=== PATIENT | female | born 1995 | race Hispanic/Latino ===

== ENCOUNTER 2023-02-10 21:49 | Observation (INO) | payer BC, OTHER ==
[2023-02-10 22:24] VITALS: BMI 41.1
[2023-02-10] MEDS ORDERED: hydrALAZINE 20 MG/ML VIAL SLOW IVP PRN (22:55)
[2023-02-10 23:49] LABS: #Monocytes 0.9 10x3/uL (0.0-1.1); %Basophils 0.3 % (0.0-2.0); %Eosinophils 0.5 % (0.0-6.0); %Lymphocytes 19.8 % (18.0-47.0); %Monocytes 9.9 % (0.0-10.0); %Neutrophils 69.2 % (40.0-75.0); Hematocrit 40.5 % (34.9-44.5); Hemoglobin 14.2 g/dL (12.0-15.5); Mean Corpuscular HGB CONC 35.1 g/dL (32.0-36.0); Mean Corpuscular Hemoglobin 31.3 pg (27.0-33.0); Mean Corpuscular Volume 89.4 fl (81.6-98.3); Mean Platelet Volume 12.1 fl (7.4-10.4); Platelet Count 173 10x3/uL (150-450); RBC Distribution Width 12.8 % (11.5-14.5); Red Blood Cell (RBC) Count 4.53 10x6/uL (3.90-5.03); White Blood Cell (WBC) Count 8.7 10x3/uL (3.5-10.5)
[2023-02-11] MEDS ORDERED: hydrALAZINE 20 MG/ML VIAL SLOW IVP PRN (00:46)
[2023-02-11] MEDS ORDERED: Promethazine HCl 25 MG/ML VIAL IM PRN (00:46)
[2023-02-11] MEDS ORDERED: Ondansetron PF 4 MG/2 ML Vial IVP PRN (00:46)
[2023-02-11] MEDS ORDERED: Acetaminophen 500 MG TAB PO PRN (00:46)
[2023-02-11] MEDS ORDERED: Lactated Ringer's 1,000 ML IV SCH (01:00)
[2023-02-11 02:05] LABS: Hematocrit 40.6 % (34.9-44.5); Hemoglobin 14.3 g/dL (12.0-15.5); Mean Corpuscular HGB CONC 35.2 g/dL (32.0-36.0); Mean Corpuscular Hemoglobin 31.6 pg (27.0-33.0); Mean Corpuscular Volume 89.8 fl (81.6-98.3); Mean Platelet Volume 12.3 fl (7.4-10.4); Platelet Count 171 10x3/uL (150-450); RBC Distribution Width 12.9 % (11.5-14.5); Red Blood Cell (RBC) Count 4.52 10x6/uL (3.90-5.03); White Blood Cell (WBC) Count 8.1 10x3/uL (3.5-10.5)
[2023-02-11 02:17] LABS: INR-International Normal Ratio 0.9; PTT 27.9 sec (22.0-33.0); Prothrombin Time 9.9 sec (9.5-12.1)
[2023-02-11 02:41] LABS: HBSAg Index 0.15 S/CO (0-0.99); Hep B Surf Ag - L&D Non-Reactive S/CO (NonReactive)
[2023-02-11 02:42] LABS: Syphilis Antibody Nonreactive (Nonreactive); Syphilis Antibody Index 0.02 S/CO (<1.00 Non-Reactive)
[2023-02-11 02:43] LABS: HIV (1/2) Antibody/Antigen Non-Reactive (NonReactive)
== END 2023-02-11 11:15 | disposition home or self-care (01) ==
LOC: CSHLD/OP 21:49 → CSHLD 02-11 00:46 → UNDOADMOB 02-11 01:33 → CSHLD 02-11 01:33
PROVIDERS: ADMIT Family Medicine; ATTEND Family Medicine
DX: O46.93 Antepartum hemorrhage, unspecified, third trimester (principal); Z3A.38 38 weeks gestation of pregnancy; Z79.899 Other long term (current) drug therapy
CPT/HCPCS: 36415; 76815; 76819; 85025; 85027; 85610; 85730; 86780; 86900; 86901; 87340; 87389; 99285; G0378

== ENCOUNTER 2023-02-11 16:15 | Inpatient (IN) | payer BC, OTHER ==
[2023-02-11 16:31] VITALS: BMI 41.1
[2023-02-11] MEDS ORDERED: Acetaminophen 500 MG TAB PO PRN (17:34)
[2023-02-11] MEDS ORDERED: Promethazine HCl 25 MG/ML VIAL IM PRN ×2 (17:34→22:38)
[2023-02-11] MEDS ORDERED: hydrALAZINE 20 MG/ML VIAL SLOW IVP PRN ×2 (17:34→22:38)
[2023-02-11] MEDS ORDERED: Lidocaine 1% (PF) 30 ML VIAL SC PRN (17:34)
[2023-02-11] MEDS ORDERED: Ondansetron PF 4 MG/2 ML Vial IVP PRN ×2 (17:34→22:38)
[2023-02-11] MEDS ORDERED: fentaNYL 50 mcg/mL 1 mL Vial SLOW IVP PRN (17:41)
[2023-02-11] MEDS ORDERED: Oxytocin 30 units/NS 500 ML 500 ML IV SCH ×2 (17:45)
[2023-02-11] MEDS ORDERED: Lactated Ringer's 1,000 ML IV SCH (17:45)
[2023-02-11 17:57] LABS: Hematocrit 41.2 % (34.9-44.5); Hemoglobin 14.2 g/dL (12.0-15.5); Mean Corpuscular HGB CONC 34.5 g/dL (32.0-36.0); Mean Corpuscular Hemoglobin 30.6 pg (27.0-33.0); Mean Corpuscular Volume 88.8 fl (81.6-98.3); Mean Platelet Volume 12.2 fl (7.4-10.4); Platelet Count 190 10x3/uL (150-450); RBC Distribution Width 12.9 % (11.5-14.5); Red Blood Cell (RBC) Count 4.64 10x6/uL (3.90-5.03); White Blood Cell (WBC) Count 10.6 10x3/uL (3.5-10.5)
[2023-02-11 18:13] LABS: HBSAg Index 0.14 S/CO (0-0.99); Hep B Surf Ag - L&D Non-Reactive S/CO (NonReactive)
[2023-02-11 18:15] LABS: Syphilis Antibody Nonreactive (Nonreactive); Syphilis Antibody Index 0.02 S/CO (<1.00 Non-Reactive)
[2023-02-11 18:45] LABS: HIV (1/2) Antibody/Antigen Non-Reactive (NonReactive); HIV 1/2 INDEX 0.11 S/CO (<1.00)
[2023-02-11] MEDS ORDERED: Misoprostol 200 MCG TAB ONE (22:25)
[2023-02-11] MEDS ORDERED: Milk Of Magnesia 30 ML UDCUP PO PRN (22:38)
[2023-02-11] MEDS ORDERED: Bisacodyl 10 MG SUPP PR PRN (22:38)
[2023-02-11] MEDS ORDERED: Benzocaine-Menthol 82.5 ML CAN TOP PRN (22:38)
[2023-02-11] MEDS ORDERED: diphenhydrAMINE 25 MG CAP PO PRN (22:38)
[2023-02-11] MEDS ORDERED: Lanolin Ointment 7 GM TUBE TOP PRN (22:38)
[2023-02-11] MEDS ORDERED: HYDROcodone/Acetaminophen 5/325 mg Tablet PO PRN (22:38)
[2023-02-11] MEDS ORDERED: Boostrix 0.5 ML (Tdap) VIAL (>/=7 yrs of age) IM ONE (22:38)
[2023-02-11] MEDS ORDERED: Ibuprofen 800 MG TAB PO SCH (23:00)
[2023-02-11] MEDS ORDERED: Docusate 100 MG CAP PO SCH (23:00)
[2023-02-12] MEDS: Ibuprofen 800 MG TAB PO SCH ×3 (06:32→21:29)
[2023-02-12] MEDS: Ferrous Sulfate 325 MG TAB PO SCH ×2 (07:18→17:51)
[2023-02-12] MEDS: Prenatal Vitamin 1 TAB PO SCH (09:17)
[2023-02-12] MEDS: Docusate 100 MG CAP PO SCH ×2 (09:18→21:30)
[2023-02-13] MEDS: Ibuprofen 800 MG TAB PO SCH (05:41)
[2023-02-13 07:51] VITALS: BP 120/63; TEMP 98.3
[2023-02-13] MEDS: Prenatal Vitamin 1 TAB PO SCH (08:34)
[2023-02-13] MEDS: Docusate 100 MG CAP PO SCH (08:34)
[2023-02-13] MEDS: Ferrous Sulfate 325 MG TAB PO SCH (12:09)
== END 2023-02-13 13:30 | disposition home or self-care (01) | DRG 807 ==
LOC: CSHLD/OP 16:15 → CSHLD 17:23 → CSHPP 23:28
PROVIDERS: ADMIT Family Medicine; ATTEND Family Medicine
PROC: 10E0XZZ Delivery of Products of Conception, External Approach (ICD-10-PCS; principal; 2023-02-11)
PROC: 10907ZC Drainage of Amniotic Fluid, Therapeutic from Products of Conception, Via Natural or Artificial Opening (ICD-10-PCS; 2023-02-11)
DX: O80 Encounter for full-term uncomplicated delivery (principal); Z37.0 Single live birth; Z3A.38 38 weeks gestation of pregnancy
CPT/HCPCS: 36415; 76815; 76819; 85025; 85027; 85610; 85730; 86780; 86850; 86900; 86901; 87340; 87389; 99285; G0378; J2590